=== PATIENT | male | born 1975 | race Hispanic/Latino ===

== ENCOUNTER → 2021-04-03 | Day surgery (SDC) | payer OTHER ==
[~2021-04-03] MED LIST: BENZONATATE100 MG PO; DILTIAZEM 24HR180 MG PO; DOXEPIN HCL25 MG PO; LIDOCAINE HCL 2% LOCAL INJ 5 ML SDV VIAL INJ ONE; NEOSTIGMINE 1 MG/ML 10ML VIAL ONE; PROPOFOL IV EMULSION 10 MG/ML 20 ML VIAL ONE
[2021-04-03 08:25] VITALS: BP 118/65
== END | disposition home or self-care (01) ==
LOC: OR 06:12
PROVIDERS: ATTEND Internal Medicine Gastroenterology
DX: Z43.1 Encounter for attention to gastrostomy (principal); K29.60 Other gastritis without bleeding; K20.90 Esophagitis, unspecified without bleeding; I10 Essential (primary) hypertension; Z01.810 Encounter for preprocedural cardiovascular examination; Z01.812 Encounter for preprocedural laboratory examination; Z20.822 Contact with and (suspected) exposure to COVID-19; Z86.16 Personal history of COVID-19; Z87.01 Personal history of pneumonia (recurrent)
CPT/HCPCS: 43239; 43246; 93005; J2001; J2710; U0002